=== PATIENT | female | born 1985 | race African-American/Black ===

== ENCOUNTER 2018-06-19 09:31 | Emergency (ER) | payer OTHER ==
[2018-06-19 09:41] VITALS: BP 127/83; PULSE 86; TEMP 98.4; BMI 82.3
--- NOTE | 2018-06-19 10:35 | PDOC ---
History of Present Illness - General Chief Complaint: Back Pain Stated Complaint: CHRONIC LOWER BACK PAIN Time Seen by Provider: 06/19/18 10:25 History Source: Patient Exam Limitations: No Limitations - History of Present Illness Initial Comments: 32 yo morbidly obese female w a pmh of gastric sleeve, anxiety, chronic lower back pain presents to the ED with 1 day of acute lower back pain. She states the pain is worst in the lower left region of her back and radiates down her left leg. She rates the pain as 10/10 and describes it as a stabbing feeling. It began yesterday while she was lying down and has not worsened since it's onset. It hurts her to walk or get up. She denies associated symptoms of dysuria , frequency, urgency, bowel or bladder incontinence, saddle anesthesia, fevers, chills, or infections. She has taken naproxyn for the pain with minimal relief. PCP: Robert Castorena PSH: Gastric Sleeve Allergies: Shellfish, NKDA Social Hx: Drinks recreationally. Denies smoking or other substance usage. Past History - Past Medical History Allergies/Adverse Reactions: Allergies Allergy/AdvReac Type Severity Reaction Status Date / Time No Known Allergies Allergy Verified 06/19/18 09:37 Home Medications: Ambulatory Orders Naproxen [Naprosyn -] 500 mg PO BID PRN #14 tablet 09/28/14 COPD: No CHF: No (morbid obesity) - Surgical History GI Surgery: Yes (gastric sleeve 2011) - Suicide/Smoking/Psychosocial Hx Smoking History: Never smoked Have you smoked in the past 12 months: No Information on smoking cessation initiated: No Hx Alcohol Use: No Drug/Substance Use Hx: No Substance Use Type: None Review of Systems - Review of Systems Able to Perform ROS?: Yes Constitutional: Yes: Weakness. No: Diaphoresis, Fever, Malaise HEENTM: No: Blurred Vision Respiratory: No: Shortness of Breath, Wheezing Cardiac (ROS): No: Chest Pain, Irregular Heart Rate, Lightheadedness ABD/GI: No: Abdominal Distended, Abd. Pain w/ defecation, Blood Streaked Bowels , Constipated, Diarrhea, Nausea, Poor Appetite, Poor Fluid Intake, Rectal Bleeding, Vomiting, Indigestion : Yes: Flank Pain. No: Burning, Dysuria, Discharge, Frequency, Hematuria, Incontinence, Pain Musculoskeletal: Yes: Back Pain. No: Joint Pain, Joint Swelling, Muscle Pain, Muscle Weakness Integumentary: No: Change in Color, Dryness, Erythema Neurological: Yes: Weakness, Unsteady Gait. No: Headache, Numbness, Paresthesia , Tingling, Tremors, Ataxia, Dizziness Psychiatric: No: Anxiety, Depression, Mood Swings, Change in Appetite Endocrine: No: Excessive Sweating, Flushing, Intolerance to Cold, Intolerance to Heat, Increased Hunger Hematologic/Lymphatic: No: Anemia, Blood Clots, Easy Bleeding, Easy Bruising, Bleeding Diathesis *Physical Exam - Vital Signs Last Vital Signs Temp Pulse Resp BP Pulse Ox 98.4 F 86 16 127/83 100 06/19/18 09:38 06/19/18 09:38 06/19/18 09:38 06/19/18 09:38 06/19/18 09:38 - Physical Exam General Appearance: Yes: Nourished, Appropriately Dressed, Obese. No: Apparent Distress HEENT: positive: EOMI, VIPIN, Normal ENT Inspection, Normal Voice Neck: positive: Supple. negative: Rigid Respiratory/Chest: positive: Lungs Clear, Normal Breath Sounds Cardiovascular: positive: Regular Rhythm, Regular Rate, S1, S2 Vascular Pulses: Dorsalis-Pedis (R): 2+, Doralis-Pedis (L): 2+ Gastrointestinal/Abdominal: positive: Normal Bowel Sounds, Soft. negative: Guarding, Rebound Rectal Exam: positive: deferred Lymphatic: negative: Adenopathy Musculoskeletal: positive: Normal Inspection, Decreased Range of Motion. negative: CVA Tenderness Extremity: positive: Normal Capillary Refill, Normal Inspection, Other ( Positive left Straight leg). negative: Normal Range of Motion Integumentary: positive: Normal Color, Dry, Warm Neurologic: positive: legal support manager II-XII NML intact, Fully Oriented, Alert, Normal Mood/ Affect Moderate Sedation - Procedure Monitoring Vital Signs: Procedure Monitoring Vital Signs Temperature 98.4 F 06/19/18 09:38 Pulse Rate 86 06/19/18 09:38 Respiratory Rate 16 06/19/18 09:38 Blood Pressure 127/83 06/19/18 09:38 O2 Sat by Pulse Oximetry (%) 100 06/19/18 09:38 Medical Decision Making - Medical Decision Making 32 yo morbidly obese female w a pmh of gastric sleeve, anxiety, chronic lower back pain presents to the ED with 1 day of acute lower back pain. She states the pain is worst in the lower left region of her back and radiates down her left leg. She rates the pain as 10/10 and describes it as a stabbing feeling. It began yesterday while she was lying down and has not worsened since it's onset. It hurts her to walk or get up. She denies associated symptoms of dysuria , frequency, urgency, bowel or bladder incontinence, saddle anesthesia, fevers, chills, or infections. She has taken naproxyn for the pain with minimal relief. - VSS DDx IBNLT: Sciatica, cauda equina, conus medularis, spinal epidural abscess, kidney stones, vs ectopic, uti/pylo - Positive straight leg exam on left worse than right suggestive of sciatica. Plan: UA, hcg, analgeisa, re-assess. Patient feels better after toradol and valium. - Will DC on aleve, valium and Ortho FU. - Given patient Dr. Mcdonnell for ortho. *DC/Admit/Observation/Transfer Diagnosis at time of Disposition: Sciatica - Discharge Dispostion Disposition: HOME Condition at time of disposition: Stable Decision to Admit order: No - Referrals Referrals: Robert Castorena MD [Primary Care Provider] - Aris Mcdonnell MD [Staff Physician] - - Patient Instructions Printed Discharge Instructions: DI for Low Back Pain, DI for Sciatica Additional Instructions: You came into the ER with lower back pain. We believe your pain might be due to a herniated disc called sciatica - please see attached handout for further explanation. We are sending valium to your pharmacy - please make sure to go and pick it up. Please also take aleve as needed for pain control. Follow directions as appears on the box. We are giving you the number for an orthopedic surgeon Dr. Mcdonnell - to call and schedule an appointment with in the next 3 to 5 days to take care of your back pain. Come back to the ER immediately if your pain worsens, get a fever, can't control your bowel or bladder, or have any other new or worsening concerns. Thank you for coming to the [facility] ER. We hope you feel better soon! Print Language: SYRIAC - Post Discharge Activity
[2018-06-19] MEDS ORDERED: IBUPROFEN 600 MG TABLET (FP) PO ONE (11:09)
[2018-06-19] MEDS ORDERED: KETOROLAC TROMETHAMINE 60 MG/2 ML VIAL IM ONE (11:10)
[2018-06-19] MEDS ORDERED: diazePAM 5 MG TABLET PO ONE (11:21)
[2018-06-19 11:31] LABS: URINE APPEARANCE CLOUDY; URINE BILIRUBIN NEGATIVE (<2.0 mg/dL); URINE COLOR YELLOW; URINE GLUCOSE (UA) NEGATIVE (NEGATIVE); URINE KETONE NEGATIVE (NEGATIVE); URINE LEUK ESTERASE 1+ (NEGATIVE); URINE NITRITE NEGATIVE (NEGATIVE); URINE PROTEIN NEGATIVE (NEGATIVE); URINE UROBILINOGEN 4.0 E.U/dl mg/dL (0.2-1.0)
[2018-06-19 11:35] LABS: EPI CELLS FEW /HPF (FEW); URINE BACTERIA RARE /hpf (NONE SEEN); URINE MUCUS MANY
--- NOTE | 2018-06-19 11:46 | PDOC ---
Attending Attestation - HPI HPI: 06/19/18 11:52 The patient is a 32 year old, morbidly obese, female with a significant past medical history of gastric sleeve, anxiety, chronic lower back pain who presents to the ED with 1 day of acute right lower back pain. She states the pain is worst in the lower right region of her back and radiates down to her right thigh. She rates the pain as 10/10. She states it feels like her usual back pain, but much more intense. She reports no relief of pain after use of Motrin and Aleve. She denies associated symptoms of dysuria, frequency, urgency, bowel or bladder incontinence, saddle anesthesia, fevers, chills, or infections. PCP: Robert Castorena PSH: Gastric Sleeve Allergies: Shellfish, NKDA Social Hx: Drinks recreationally. Denies smoking or other substance usage. - Physicial Exam PE: 06/19/18 11:52 Vitals: Triage vital signs reviewed General Appearance: No acute distress, morbidly obese, Head: Atraumatic Eyes: Pupils equal reactive round, extraocular movement intact Neck: Supple; No nuchal rigidity Chest Wall: Nontender Cardiac: Regular rate and rhythm, no murmurs, no rubs, no gallops Lungs: Clear to auscultation bilateral, good air movement bilaterally Abdomen: Soft, nondistended, normal bowel sounds, nontender to palpation Extremities: Full range of motion to all extremities, no cyanosis, clubbing, or edema Skin: Warm and dry, no rashes or lesions, no rash, no petechiae Neuro: AOX3; Cranial Nerves 2-12 grossly intact, Strength intact to all extremities, Sensation intact to all extremities, Psych: Normal mood, normal affect <Racheal Diaz - Last Filed: 06/19/18 11:52> - Resident Resident Name: Oj Swift - ED Attending Attestation I have performed the following: I have examined & evaluated the patient, The case was reviewed & discussed with the resident, I agree w/resident's findings & plan, Exceptions are as noted - Medical Decision Making 06/19/18 16:20 32 years old morbidly obese for chronic low back pain usually intermittent yesterday worsening pain from low back radiating down to her thigh. No weakness no numbness no bowel or bladder incontinence no other red flags on back pain history Status post pain medication patient feels better able to ambulate will follow up with orthopedics next week Findings, the need for follow-up and strict return instructions discussed with patient. <Justen Peralta - Last Filed: 06/19/18 16:21> Attestations - Attestations 06/19/18 11:53 Documentation prepared by Racheal Diaz, acting as medical physicist for Justen Peralta MD <Racheal Diaz - Last Filed: 06/19/18 11:52>
== END 2018-06-19 12:22 | disposition home or self-care (01) ==
LOC: JER 09:31
PROC: 3E0233Z Introduction of Anti-inflammatory into Muscle, Percutaneous Approach (ICD-10-PCS; principal; 2018-06-19)
DX: M54.42 Lumbago with sciatica, left side (principal); E66.09 Other obesity due to excess calories; Z68.45 Body mass index [BMI] 70 or greater, adult
CPT/HCPCS: 81003; 81015; 84703; 99282-25